=== PATIENT | female | born 1945 | race Caucasian/White ===

== ENCOUNTER → 2017-02-22 16:09 | Outpatient (CLI) | payer MEDICARE, OTHER ==
[2016-01-26 20:35] VITALS: BMI 25.8
[~2017-02-22 16:09] MED LIST: CALCIUM 600 +1 EAC3 PO; COLACE100 MG PO; FLUTICASONE PRO16 GM NASAL; HYZAAR 100-25 T1 TAB; HYZAAR 100-25 T1 TAB PO; K-DUR20 MEQ PO; MIRALAX17 GM PO; MULTIPLE VITAMI1 TA1 PO; NORVASC10 MG PO; PROTONIX40 MG PO
== END | disposition home or self-care (01) ==
LOC: D.CT 16:09
DX: R10.32 Left lower quadrant pain (principal)

== ENCOUNTER → 2017-07-20 07:13 | Outpatient (CLI) | payer MEDICARE, OTHER ==
[2016-01-26 20:35] VITALS: BMI 25.8
== END | disposition home or self-care (01) ==
LOC: D.RAD 07:13
DX: Z09 Encounter for follow-up examination after completed treatment for conditions other than malignant neoplasm (principal)

== ENCOUNTER 2017-09-01 08:00 | Outpatient (CLI) | payer MEDICARE, OTHER ==
[2016-01-26 20:35] VITALS: BMI 25.8
[2017-09-01] MEDS ORDERED: ELAVIL25 MG PO (08:16)
[2017-09-01] MEDS ORDERED: ZANTAC150 MG PO (08:16)
[2017-09-01] MEDS ORDERED: CARAFATE1 G PO (08:16)
[2017-09-01] MEDS ORDERED: VITAMIN B-12500 MC1 PO (08:17)
[2017-09-01] MEDS ORDERED: ALENDRONATE SOD70 MG PO (08:17)
[2017-09-01] MEDS ORDERED: MAG-OXIDE400 MG PO (08:18)
[2017-09-01 09:04] LABS: HEMATOCRIT 39.3 % (36.0-48.0); MCH 28.1 pg (26.0-34.0); MCHC 33.1 g/dL (31.0-37.0); MCV 85.1 fL (80.0-100.0); MEAN PLATELET VOLUME 9.7 fL (7.4-10.4); RBC 4.62 10x6/uL (4.00-5.40); RDW 14.4 % (11.5-14.5); WBC 4.9 10x3/uL (4.8-10.8)
--- NOTE | 2017-09-01 09:50 | NUR ---
0940-DR RECIO (IN SURGERY) NOTIFIED OF CRITICAL POTASSIUM LEVEL AND ABNORMAL EKG AT PREADMISSION APPOINTMENT. ORDERS RECD. [id number] NURSE-NOTIFIED TO CANCEL SURGERY, NOTIFY PATIENT, CALL IN POTASSIUM, AND ARRANGE APPOINTMENT WITH PRIMARY (YUE) AND SKULL CHOPPER.
== END 2017-09-01 23:59 | disposition home or self-care (01) ==
LOC: D.OPS 08:00 → D.PAN 09-03 11:30 → D.OPS 09-03 12:00 → D.PAN 09-03 12:00 → EDSTATUS 09-03 12:00
PROVIDERS: Anesthesiology
DX: D13.2 Benign neoplasm of duodenum (principal); Z01.810 Encounter for preprocedural cardiovascular examination; Z01.811 Encounter for preprocedural respiratory examination; Z01.812 Encounter for preprocedural laboratory examination; Z53.9 Procedure and treatment not carried out, unspecified reason

== ENCOUNTER 2017-10-20 12:20 | Day surgery (SDC) | payer MEDICARE, OTHER ==
[2017-10-18 10:32] LABS: HEMATOCRIT 37.3 % (36.0-48.0); HEMOGLOBIN 12.1 g/dL (12-16); MCH 27.6 pg (26.0-34.0); MCHC 32.4 g/dL (31.0-37.0); RBC 4.39 10x6/uL (4.00-5.40); RDW 14.4 % (11.5-14.5); WBC 4.9 10x3/uL (4.8-10.8)
[2017-10-18 10:42] LABS: ANION GAP 11.9 mmol/L (8-16); CALCIUM 8.8 mg/dL (8.5-10.1); CARBON DIOXIDE 30.1 mmol/L (21.0-32.0); CREATININE - SERUM 0.8 mg/dL (0.6-1.3)
[~2017-10-20] VITALS: Ht 157.5 cm; Wt 62.6 kg
[2017-10-20 12:10] VITALS: BP 129/82; Ht 157.5 cm; Wt 62.6 kg
[~2017-10-20 12:20] MED LIST changes: +ALENDRONATE SOD70 MG PO; +CARAFATE1 G PO; +ELAVIL25 MG PO; +MAG-OXIDE400 MG PO; +VITAMIN B-12500 MC1 PO; +ZANTAC150 MG PO
--- NOTE | 2017-10-20 20:53 | NUR ---
RECIEVED PT TO FLOOR FROM OUTPATIENT RECOVERY. ALERT AND ORIENTED AND ABLE TO VERBALIZE NEEDS. VSS. NO NEEDS VOICED AT THIS TIME. FAMILY IS AT THE BEDSIDE. SIDE RAILS X 2. BED IS LOW. CALL LIGHT IN REACH.
--- NOTE | 2017-11-18 13:26 | HP ---
PATIENT: SUNI SHAIKH MEDICAL RECORD: [id number] ACCOUNT: [id number] LOCATION:DAdalCARLOS : 41 ADMISSION DATE: 10/20/17 HISTORY AND PHYSICAL EXAMINATION This is a history and physical addendum CHIEF COMPLAINT: Polyp. HISTORY OF PRESENT ILLNESS: A history and physical examination is on the chart. The patient has a duodenal polyp at the second portion of the duodenum. This is biopsy proven duodenal adenoma. I am going to plan for an EGD with biopsies and ablation of any polypoid tissue with the argon plasma nurse practitioner adult. The risks, possible complications and alternatives to procedure were explained to the patient. She elects to proceed. TRANSINT:[id number] Voice Confirmation ID: [id number] DOCUMENT ID: [id number] SEAMUS RECIO MD at 1326 CC: CIPRIANO SILVA MD and PINO TURNER DO [id number] DICTATION DATE: 10/20/171954 CORPORATE CONCIERGE: 10/20/172108 [facility] 10/20/17 [id number] [place] [address]
--- NOTE | 2017-11-18 13:26 | OP ---
PATIENT NAME: SUNI SHAIKH MEDICAL RECORD: [id number] :41 LOCATION:D.OPS ADMISSION DATE: SURGEON: SEAMUS RECIO MD DATE OF OPERATION: 10/20/2017 PREOPERATIVE DIAGNOSIS: Duodenal adenoma at the second portion of duodenum. POSTOPERATIVE DIAGNOSIS: Duodenal adenoma at the second portion of duodenum. PROCEDURES: 1. Esophagogastroduodenoscopy with antral biopsies. 2. Duodenal polypectomy utilizing argon plasma diagnostic cardiac sonographer. SURGEON: Seamus Recio MD DECORATOR INSPECTOR: None. BLOOD LOSS: Minimal. ANESTHESIA: General. COMPLICATIONS: None. The risks, possible complications and alternatives to procedure were explained to the patient. She elects to proceed. OPERATIVE COURSE: The patient was conveyed to the operating room electively on 10/20/2017. General anesthesia was induced by the anesthesia staff. A bite block was inserted. A gastroscope was inserted into the mouth. It was advanced easily into the hypopharynx. The esophagus was easily intubated as were the stomach and duodenum. Upon withdrawal, retroflexed and angulus views were obtained. Antral biopsies were obtained. I then advanced again into the duodenum. Carefully scrutinized the duodenal bulb, second and third portions of the duodenum. It appeared that Dr. Presley has likely removed most of the polypoid tissue with her cold endoscopic biopsies. I did identify one area of what appear to be a polypoid tissue with narrow band imaging. This was biopsied. I then ablated the base of the tissue with the argon plasma diagnostic cardiac sonographer with the esophageal setting in the forced mode. The endoscope was then withdrawn under direct vision. I will see the patient in my office in 2-3 weeks. I will plan for her an upper endoscopy with the argon plasma diagnostic cardiac sonographer in 1 year. TRANSINT:[id number] Voice Confirmation ID: [id number] DOCUMENT ID: [id number] SEAMUS RECIO MD at 1326 CC: CIPRIANO PRESLEY MD and PINO TURNER DO [id number] DICTATION DATE: 10/20/172000 PAPER BAG PRESS OPERATOR: 10/20/173 [facility] 10/20/17 [place] [address]
== END 2017-10-20 22:15 | disposition home or self-care (01) ==
LOC: D.OPS 12:20 → D.PAN 14:00 → D.OPS 14:00 → D.MS 20:22 → D.OPS 22:15
PROVIDERS: Anesthesiology
DX: D13.2 Benign neoplasm of duodenum (principal); K29.50 Unspecified chronic gastritis without bleeding; Z01.812 Encounter for preprocedural laboratory examination

== ENCOUNTER 2019-02-22 16:31 | Observation (INO) | payer MEDICARE, OTHER ==
[~2019-02-22] VITALS: Ht 157.5 cm; Wt 70.1 kg
--- NOTE | ~2019-02-22 | HEMODYNAMI ---
PATIENT:SUNI SHAIKH MEDICAL RECORD: [id number] : 41 LOCATION:[facility] D.[address]122 [facility]# [id number] ADMISSION DATE: 02/22/19 Generatedon:02/23/201914:49 Patient name: SUNI SHAIKH Patient #: [id number] SSN: DO B: 1945 Date of study: 02/23/2019 Page: Of Hemodynamic Procedure Report Patient Data Patient Demographics Procedure consent was obtained First Name: SUNI Gender: Female Last Name: HAWA : 1945 Middle Initial: JANICE Age: 73 year(s) Patient #: [id number] Race: Unknown Additional ID: [id number] Contact details [address]: [address] [place] [address] State: [place] City: [place] Zip code: [address] Admission Admission Data Admission Date: 02/22/2019 Admission Time: 18:22 Admit Source: Other Room #: D.2122 Weight (lbs.): 136.69 Weight (kg.): 62 Lab Results Lab Result Date: 02/23/2019 Lab Result Time: 0:00 Biochemistry Name Units Result Min Max BUN mg/dl 9 --(*---)-- 7 18 Creatinine mg/dl 0.8 --(-*--)-- 0.6 1.3 CBC Name Units Result Min Max Hemoglobin g/dl 11.9 *-(----)-- 13.5 17.5 Procedure Procedure Types Cath Procedure Diagnostic Procedure LHC LH w/Coronaries FFR/IVUS Intra-Coronary IVUS Initial PCI Procedure Coronary Stent Coronary Stent Initial Peripheral Cath Diagnostic Procedure Assistant Program Director Peripheral Procedures Four Vessel Arteriogram Procedure Description Procedure Date Procedure Date: 02/23/2019 Procedure Start Time: 14:14 Procedure End Time: 14:47 Procedure Staff Name Function Tomer Mi MD Performing Physician Juan Fox RT Monitor Trung Rowe RT Scrub Kim Spaulding RN Nurse Robert Reese RT Moisture Meter Operator Procedure Data Cath Procedure Fluoroscopy Diagnostic fluoroscopy Total fluoroscopy Time: time: 5.97 min 5.97 min Diagnostic fluoroscopy Total fluoroscopy dose: 244 dose: 244 mGy mGy Contrast Material Contrast Material Type Amount (ml) Isovue 300 128 Entry Location Entry Primary Successful Side Size Upsize Upsize Entry Closure Succes sful Closure Location (Fr) 1 (Fr) 2 (Fr) Remarks Device Remarks Femoral Right 5 Fr 6 Fr Exoseal artery Short Estimated blood loss: 10 ml Diagnostic catheters Device Type Used For End Catheter Placement MULTIPACK Pigtail 5 Fr Procedure catheter MULTIPACK JL 4.0 5Fr Procedure catheter MULTIPACK 3DRC 5Fr Procedure catheter Procedure Complications No complications Procedure Medications Medication Administration Route Dosage Oxygen etCO2 Nasal cannula 2 l/min Lidocaine 2% added to field 20 Heparin Flush Bag added to field 2 bags (1000units/500ml NS) 0.9% NaCl I.V. 100 ml/hr Versed I.V. 1 mg Fentanyl I.V. 50 mcg Lopressor I.V. 5 mg Versed I.V. 1 mg Fentanyl I.V. 50 mcg Versed I.V. 1 mg Heparin Bolus I.V. 4000 units Hemodynamics Rest HGB: 11.9 (g/dl) Heart Rate: 94 (bpm) Pressure Samples Time Site Value (mmHg) Purpose Heart Use Rate(bpm) 14:19 AO 102/65(80) Snapshot 62 Snapshots Pre Cath Intra NCS Post Cath Vital Signs Time Heart Resp SPO2 etCO2 NIBP (mmHg) Rhythm Pain Sedation Rate (ipm) (%) (mmHg) Status Level (bpm) 13:58:12 90 13 97 0 172/104(136) NSR 0 (11) 10(A) , No pain 14:02:32 101 23 96 24.7 157/98(127) NSR 0 (11) 10(A) , No pain 14:06:50 88 20 95 30 146/90(113) NSR 0 (11) 10(A) , No pain 14:11:06 85 14 97 32.2 129/83(103) NSR 0 (11) 10(A) , No pain 14:15:18 82 14 98 1.5 116/74(87) NSR 0 (11) 9(A) , No pain 14:19:30 67 14 98 41.3 118/65(82) NSR 0 (11) 9(A) , No pain 14:23:38 68 13 99 31.5 128/81(112) NSR 0 (11) 9(A) , No pain 14:27:52 57 12 99 15 116/72(93) NSR 0 (11) 9(A) , No pain 14:32:02 60 12 99 12 102/68(89) NSR 0 (11) 10(A) , No pain 14:36:05 62 13 100 27.7 114/75(94) NSR 0 (11) 10(A) , No pain 14:40:15 64 16 99 32.2 118/69(91) NSR 0 (11) 10(A) , No pain 14:44:25 60 14 99 27.7 113/73(102) NSR 0 (11) 10(A) , No pain Medications Time Medication Route Dose Verified Delivered Reason Notes Effectiveness by by 14:07:34 Oxygen etCO2 2 Tomer Buffie used for Nasal l/min Hiwot Spaulding RN procedure cannula 14:07:42 Lidocaine 2% added 20ml Tomer Tomer for local to vial Hiwot Mi MD anesthetic field 14:07:49 Heparin Flush added 2 Tomer Tomer used for Bag to bags Hiwot Mi MD procedure (1000units/500ml field NS) 14:08:02 0.9% NaCl I.V. 100 Tomer Buffie used for ml/hr Hiwot Spaulding RN procedure 14:11:05 Fentanyl I.V. 50 Tomer Buffie for sedation mcg Hiwot Spaulding RN 14:11:58 Versed I.V. 1 mg Tomer Buffie for sedation Hiwot Spaulding RN 14:13:15 Lopressor I.V. 5 mg Tomer Buffie for arrhythmia Hiwot Spaulding RN 14:16:27 Versed I.V. 1 mg Tomer Buffie for sedation Hiwot Spaulding RN 14:16:32 Fentanyl I.V. 50 Tomer Buffie for sedation mcg Hiwot Spaulding RN 14:24:12 Versed I.V. 1 mg Tomer Buffie for sedation Hiwot Spaulding RN 14:28:01 Heparin Bolus I.V. 4000 Tomer Buffie for verif ied units Hiwot Spaulding RN anticoagulation with dr mi Procedure Log Time Note 13:38:18 Informed consent obtained and on chart 13:38:22 Admit Source: Other 13:38:39 Diagnostic Cath status Elective 13:38:41 Robert Reese RT(R) (CV) sent for patient. Start room use. 13:49:59 Time tracking: Regular hours (M-F 7:00 - 5:00) 13:50:02 Plan of Care:Hemodynamics will remain stable., Cardiac rhythm will remain stable., Comfort level will be maintained., Respiratory function will remain adequate., Patient/ family verbilizes understanding of procedure., Procedure tolerated without complication., Recovers from procedure without complications.. 13:50:17 Patient received from PCU to CCL 3 Alert and oriented. Tansferred to table in Supine position. 13:50:19 Warm blankets applied, and lai hugger turned on for patient comfort. 13:50:19 Correct patient and procedure confirmed by team. 13:50:20 ECG and BP/O2 sat monitors applied to patient. 13:56:17 Vital chart was started 13:56:18 Baseline sample Acquired. 13:56:22 Rhythm: bigeminy 13:56:27 Full Disclosure recording started 14:00:25 H&P Date Dictated: 02/22/2019 Within 30 days and on chart., H&P Addendum completed by physician on day of procedure. (MUST COMPLETE FOR ALL OUTPATIENTS). 14:00:25 Pre-procedure instructions explained to patient. 14:00:26 Pre-op teaching completed and patient verbalized understanding. 14:00:27 Family in patients room. 14:00:29 Patient NPO since Midnight. 14:00:32 Is the patient allergic to Iodine/contrast media? No. 14:01:35 Is patient on blood thinner?Yes 14:01:41 Patient diabetic? No. 14:01:46 Previous problem with sedation/anesthesia? No ? 14:01:47 Snore? Yes 14:01:49 Sleep apnea? No 14:01:57 Deviated septum? No 14:01:57 Opens mouth fully? Yes 14:01:58 Sticks out tongue? Yes 14:02:01 Airway obstruction? No ? 14:02:03 Dentures? No ? 14:02:09 Pre procedure: right dorsailis pedis pulse 1+ Palpable, but thready & weak; easily obliterated 14:02:10 Patient pain scale 0/10 ?. 14:02:14 IV patent on arrival in left forearm with 0.9% NaCl at O. 14:02:16 Lab results completed and on chart. 14:02:20 Right groin area was prepped with chlora-prep and draped in sterile fashion 14:02:21 Alarms reviewed by R. N. 14:02:21 Sharps counted by scrub and verified by R.N. 14:03:02 Use device set Femoral Dx 14:03:07 Tegaderm 4 x 4 (1626W) opened to sterile field. 14:03:08 ACIST Manifold (71540) opened to sterile field. 14:03:09 ACIST Hand Control (65997) opened to sterile field. 14:03:10 ACIST Syringe (87681) opened to sterile field. 14:03:11 Bag Decanter (2002S) opened to sterile field. 14:03:11 Medline Cath Pack ([id number]) opened to sterile field. 14:03:12 DIAGNOSTIC WIRE .035 260cm J wire (159638) opened to sterile field. 14:03:13 DIAGNOSTIC Multipack 5Fr catheter set (QJ9073) opened to sterile field. 14:03:14 SHEATH 5FR Roulette (ZLC700) opened to sterile field. 14:07:34 Oxygen 2 l/min etCO2 Nasal cannula was administered by Kim Spaulding RN; used for procedure; 14:07:42 Lidocaine 2% 20ml vial added to field was administered by Tomer Mi MD; for local anesthetic; 14:07:49 Heparin Flush Bag (1000units/500ml NS) 2 bags added to field was administered by Tomer Mi MD; used for procedure; 14:08:02 0.9% NaCl 100 ml/hr I.V. was administered by Kim Spaulding RN; used for procedure; 14::19 --------ALL STOP TIME OUT------ 14::19 Final Timeout: patient, procedure, and site verified with staff and physician. All members of the team are in agreement. 14:10:21 Right groin site verified by team. 14:10:24 Maximum allowable Isovue 300 dose 300ml. Physician notified. (300ml for normal creatinines. For patients with creatinine of 1.7 or higher multiply weight(kg) x 5 divided by creatinine.) 14:10:29 Fire Safety Assessment: A--An alcohol-based skin anteseptic being used preoperatively., C--Open oxygen or nitrous oxide is being used., D--An ESU, laser, or fiber-optic light is being used. 14:10:32 Physical assessment completed. ASA score P 2 - A patient with mild systemic disease as per Tomer Mi MD. 14:10:34 Sedation plan: IV Moderate Sedation Medication:Versed, Fentanyl 14:11:05 Fentanyl 50 mcg I.V. was administered by Kim Spaulding RN; for sedation; 14:11:58 Versed 1 mg I.V. was administered by Kim Spaulding RN; for sedation; 14:13:15 Lopressor 5 mg I.V. was administered by Kim Spaulding RN; for arrhythmia; 14:13:22 Patient Weight : 136.69 lbs 14:13:57 Lab Result : Hemoglobin 11.9 g/dl 14:13:57 Lab Result : Creatinine 0.8 mg/dl 14:13:57 Lab Result : BUN 9 mg/dl 14:14:07 Procedure started. 14:14:10 Local anesthetic to right femoral artery with Lidocaine 2% by Tomer Mi MD.INITIAL ACCESS ONLY 14:16:19 A 5 Fr sheath was inserted into the Right Femoral artery 14:16:25 A MULTIPACK Pigtail 5 Fr catheter was advanced over the wire and used for Procedure. 14:16:27 Versed 1 mg I.V. was administered by Kim Spaulding RN; for sedation; 14:16:32 Fentanyl 50 mcg I.V. was administered by Kim Spaulding RN; for sedation; 14:17:01 LV angiography performed. 14:17:02 LV gram done using DODD 14:17:07 EF : 40 % 14:17:10 Injector settings: Ml/sec: 10, Volume: 20, 14:17:11 Catheter removed. 14:17:19 A MULTIPACK JL 4.0 5Fr catheter was advanced over the wire and used for Procedure. 14:18:47 LCA angiography performed. 14:19:29 Catheter removed. 14:20:11 A MULTIPACK 3DRC 5Fr catheter was advanced over the wire and used for Procedure. 14:20:27 RCA angiography performed. 14:20:51 Use device set [facility] PCI 14:20:52 SHEATH 6FR Roulette (HAU182) opened to sterile field. 14:21:08 GUIDE 6FR XBLAD 4.0 catheter ([id number]) opened to sterile field. 14:21:11 CHOICE PT Extra Support 182cm wire ([id number]) opened to sterile field. 14:21:14 INFLATOR Merit BasixCompak (EA0340) opened to sterile field. 14:21:54 Right subclavian angiography performed 14:21:56 Left carotid angiography performed. 14:21:59 Left subclavian angiography performed 14:22:28 [place] IVUS Catheter (19383R) opened to sterile field. 14:23:27 Catheter removed. 14:23:38 Sheath upsized to a 6 Fr Short. 14:23:44 6 Fr XBLAD 4 guide catheter was inserted over the wire 14:24:12 Versed 1 mg I.V. was administered by Kim Spaulding RN; for sedation; 14:26:22 choice wire advanced. 14:26:28 Wire advanced across lesion. 14:26:42 FFR/IVUS 14:26:42 IVUS catheter advanced over wire. 14:26:52 LAD 14:28:01 Heparin Bolus 4000 units I.V. was administered by Kim Spaulding RN; for anticoagulation; verified with dr mi 14:29:13 IVUS pass to LAD lesion performed. 14:29:14 IVUS catheter removed over wire. 14:29:27 69% 14:31:39 Place stent Inflation Number: 1 A INTEGRITY RX 3.0 x 15 stent ([id number]) was prepped and advanced across the Prox LAD. The stent was deployed at 17 ROSA for 0:10 (min:sec). 14:31:42 Stent catheter was removed intact over wire. 14:31:43 Wire removed. 14:31:43 Guide catheter removed. 14:31:45 EXOSEAL 6Fr (EX600) opened to sterile field. 14:32:19 Sheath removed intact; hemostasis achieved with Exoseal to the Right Femoral artery. 14:32:21 Procedure ended.(Physican Out) 14:44:49 Fluoroscopy time 05.97 minutes. 14:45:06 Fluoroscopy dose: 244 mGy 14:45:06 Flurop Dose total: 244 14:45:09 Contrast amount:Isovue 300 128ml. 14:45:11 Sharps counted by scrub and verified by R.N. 14:45:12 Insertion/operative site no bleeding no hematoma. 14:45:16 Post-op/insertion site Right Femoral artery dressed using a 4 x 4 and Tegaderm. 14:45:17 Post Procedure Pulses reassessed and unchanged 14:45:20 Post-procedure physical assessment completed. ASA score P 2 - A patient with mild systemic disease as per Tomer Mi MD. 14:45:23 Post procedure rhythm: unchanged. 14:45:26 Estimated blood loss: 10 ml 14:45:28 Post procedure instruction explained to patient.Patient verbalizes understanding. 14:45:28 Patient needs reinforcement of post procedure teaching. 14:45:46 Procedure type changed to Cath procedure, Diagnostic procedure, LHC, LHC w/Coronaries, FFR/IVUS, Intra-Coronary IVUS Initial, PCI procedure, Coronary Stent, Coronary Stent Initial, Peripheral Cath Diagnostic Procedure, Assistant Program Director Peripheral Procedures, Four Vessel Arteriogram 14:46:10 Procedure and supply charges have been captured, reviewed, submitted and are correct. 14:46:13 Procedure Complication : No complications 14:46:16 Vital chart was stopped 14:46:16 See physician's report for complete and final results. 14:47:28 Report given to PCU. 14:47:32 Patient transfered to PCU with Bed. 14:47:34 Procedure ended. 14:47:34 Full Disclosure recording stopped 14:49:09 End room use (Document Last) Intervention Summary Intervention Notes Time ActionType Lesion and Equipment Action# Pressure Duration Attributes Used 14:31:39 Place stent Prox LAD INTEGRITY RX 1 17 00:10 3.0 x 15 stent ([id number]) Device Usage Item Name Manufacture Quantity Catalog Number Hospital Part Current Mini mal Lot# / Charge Number Stock Stock Serial# Code Tegaderm 4 x 3M 1 1626W [id number] 961526 743242 5 4 (1626W) ACIST Acist 1 66477 975395 099650 025211 5 Manifold Medical (33918) Systems Inc ACIST Hand Acist 1 26207 324859 527166 036766 5 Control Medical (09115) Systems Inc ACIST Acist 1 91759 895065 281178 389767 20 Syringe Medical (96937) Systems Inc Bag Decanter Microtek 1 2001S 856476 12104 332732 5 () Medical Inc. Medline Cath Medline 1 [id number] 972008 37782 929520 5 Pack ([id number]) DIAGNOSTIC St Domo 1 131498 390209 397397 515151 30 WIRE .035 260cm J wire (127110) DIAGNOSTIC Cardinal 1 EQ1527 874107 92336 937836 30 Multipack Health 5Fr catheter set (UH3951) SHEATH 5FR Terumo 1 OSR508 683425 267071 802583 5 Roulette (NYY836) MULTIPACK Cardinal 1 030304 5 Pigtail 5 Fr Health catheter MULTIPACK JL Cardinal 1 522706 5 4.0 5Fr Health catheter MULTIPACK Cardinal 1 118765 5 3DRC 5Fr Health catheter SHEATH 6FR Terumo 1 YDD972 219473 648787 016151 40 Roulette (DNG504) GUIDE 6FR Cardinal 1 [id number] 279174 776967 230076 3 XBLAD 4.0 Health catheter ([id number]) CHOICE PT [place] 1 [id number] 647435 845333 098935 5 Extra Scientific Support 182cm wire ([id number]) INFLATOR Merit 1 DO7201 425279 709103 203389 15 [facility] Medical BasixCompak (NV3088) [place]arm Glenarm 1 26391O 765066 165510 996785 8 [place] IVUS Catheter (78871F) INTEGRITY RX Medtronic 1 [id number] 044386 692848 030799 5 [id number] 3.0 x 15 stent ([id number]) EXOSEAL 6Fr Cardinal 1 EX600 182559 272469 158968 10 (EX600) Health Signature Audit Aragon Stage Time Signature Unsigned Intra-Procedure 02/23/2019 Juan Fox 2:49:39 PM RT(R) Signatures Monitor : Juan Fox RT Signature : Date : Time : [facility] [address] [place] [address]
--- NOTE | ~2019-02-22 | CN ---
PATIENT NAME:SUNI PENNINGTON MEDICAL RECORD: [id number] : 41 LOCATION:D. D.2122 ADMIT DATE: 02/22/19 ACCOUNT: [id number] CONSULTING PHYSICIAN: KAREN MIGUEL MD REFERRING PHYSICIAN: PINO TURNER DO DATE OF CONSULTATION: 02/22/2019 DIAGNOSES: 1. Angina. 2. Abnormal ECG. 3. Premature ventricular contractions. 4. Hypertension. 5. Hyperlipidemia. 6. Family history of coronary artery disease. 7. Gastroesophageal reflux disease. HISTORY OF PRESENT ILLNESS: Mrs. Pennington for the past 2 weeks has been having episodes of palpitations and chest pain. Her EKG is significantly abnormal. She has frequent PVCs, nonspecific ST-T abnormalities. She continues to have the episodes of chest discomfort. She is on amlodipine for blood pressure. PHYSICAL EXAMINATION: GENERAL APPEARANCE: Well-nourished, well-developed, appears stated age. Level of distress, comfortable. PSYCHIATRIC: Mental status, alert, normal affect. Orientation, oriented to time, place and person. EYES: Lids and conjunctiva, noninjected. No discharge, no pallor. ENT: Lips, teeth, gums, normal dentition. Oropharynx, no cyanosis, no pallor. NECK: Carotid arteries, bilateral normal upstroke, no bruits, no thrills. JUGULAR VEINS: No jugular venous pressure or distention. CERVICAL LYMPH NODES: Nontender, nonenlarged. THYROID: Not enlarged. Nontender. No nodules. LUNGS: Respiratory effort, unlabored. CHEST: Normal curvature. No thoracic deformity. No chest wall tenderness. Percussion, resonant. Auscultation, clear. No wheezes, no rales, no rhonchi. CARDIOVASCULAR: Precordial exam, nondisplaced. No heaves or pericardial thrills. Rate and rhythm, regular. Heart sounds, normal S1, normal S2. No S3, no gallop, no rub. Systolic murmur, not heard. Diastolic murmur, not heard. EXTREMITIES: No cyanosis, no edema. Peripheral pulses, full and equal in all extremities, except as noted. No bruits appreciated. ABDOMEN: Soft, nondistended. Normal aorta. No bruit. Nontender. No masses. Liver, nontender, no hepatomegaly. Spleen, nontender, no splenomegaly. MUSCULOSKELETAL: No joint tenderness. No joint swelling. No erythema. NEUROLOGICAL: Normal gait, normal strength, normal tone. SKIN: Warm and dry. OVERALL IMPRESSION: Chest discomfort compatible with angina with frequent premature ventricular contractions. We will proceed with coronary angiography. Further care depends upon findings of the angiography, and findings of the angiography depends upon treatment of the premature ventricular contractions. TRANSINT:[id number] Voice Confirmation ID: [id number] DOCUMENT ID: [id number] CONSULT REPORT [id number] SUNI PENNINGTON JEFFREY MD CC: [id number] DICTATION DATE: 02/23/19826 PATIENT SERVICE ASSOCIATE: 02/23/19846 ADM IN [facility] [address] [id number]
[2019-02-22] MEDS ORDERED: OMEPRAZOLE20 M1 PO (16:44)
[2019-02-22] MEDS ORDERED: ASPIRIN81 MG PO (16:45)
[2019-02-22 17:01] LABS: BASOPHILS 0.4 % (0-2); EOSINOPHILS 2.5 % (0-7); HEMATOCRIT 36.5 % (36.0-48.0); HEMOGLOBIN 11.9 g/dL (12-16); IMMATURE GRANULOCYTES 0.2 % (0-5); LYMPHOCYTES 28.2 % (15-50); MCH 27.6 pg (26.0-34.0); MCHC 32.6 g/dL (31.0-37.0); MCV 84.7 fL (80.0-100.0); MEAN PLATELET VOLUME 9.3 fL (7.4-10.4); MONOCYTES 12.5 % (2-11); NEUTROPHILS 56.2 % (40-80); PLATELET COUNT 199 10x3/uL (130-400); RBC 4.31 10x6/uL (4.00-5.40); RDW 15.8 % (11.5-14.5); WBC 5.3 10x3/uL (4.8-10.8)
[2019-02-22 17:11] LABS: APTT 24.8 SECONDS (22.8-39.4); INR 0.98 (0.85-1.17); PROTIME 12.5 SECONDS (11.6-15.0)
[2019-02-22 17:18] LABS: ALBUMIN 3.2 g/dL (3.4-5.0); ALKALINE PHOSPHATASE 48 U/L (46-116); ALT (SGPT) 20 U/L (10-68); BILIRUBIN - TOTAL 0.26 mg/dL (0.2-1.3); CALC OSMOLALITY 277 mosm/kg (275-300); CALCIUM 8.3 mg/dL (8.5-10.1); CARBON DIOXIDE 25.8 mmol/L (21.0-32.0); CHLORIDE - SERUM 102 mmol/L (98-107); CREATININE - SERUM 0.8 mg/dL (0.6-1.3); GLUCOSE 152 mg/dL (74-106); POTASSIUM - SERUM 3.9 mmol/L (3.5-5.1); PROTEIN - SERUM 7.4 g/dL (6.4-8.2); SODIUM 138 mmol/L (136-145); UREA NITROGEN 9 mg/dL (7-18); eGFR NON AFRICAN AMERICAN 74 mL/min (90-120)
[2019-02-22 17:43] LABS: CKMB 0.5 U/L (0.0-3.6); CREATINE KINASE 74 UL (21-215); TROPONIN-I < 0.017 ng/mL (0.000-0.060)
[2019-02-22 18:54] LABS: MAGNESIUM - SERUM 2.1 mg/dL (1.8-2.4); THYROID STIMULATING HORMONE 3.67 uIU/mL (0.36-3.74)
[2019-02-22 20:00] VITALS: BP 141/91
--- NOTE | 2019-02-22 20:00 | NUR ---
PT ARRIVED TO ROOM 2121, FAMILY AT BEDSIDE. PT IS AAO, UP AD SHARAN LEFT AC 18G NOTED. PATENT DRSG CDI. PT S1S2 IRREG. LUNGS CLEAR. PT DENIES ANY CHEST PAIN. STATES SOME CHEST DISCOMFORT, DECLINES MEDICATION BUT VERBALIZED UNDERSTANDING TO CALL IF NEED PAIN RELEIF MEDICATION. PT QUICK START PHARMACY MEDREC AND HISTORY COMPLETE. PT INSIST ON TAKING HOME MEDICATIONS. PT IS BIGEMENY AND TRIGEMENY PVC ON MONITOR READING. DENIES ANY NEEDS. NAME AND DATE PLACED ON BOARD. PT WILL CALL FOR ASSIST WILL CPOC
--- NOTE | 2019-02-22 20:22 | NUR ---
LEFTY ALVARADO [phone] ANOTHER CONTACT FOR EMERGENCYS
--- NOTE | 2019-02-22 21:08 | NUR ---
PT COMPLAINS OF BEING HUNGRY. IV IS NOW OUT OF LEFT AC WITH CATH INTACT. WILL START A NEW ACCESS SOON ABLE. PT HAS NO S/S OF DISTRESS. SANDWICH AND SPRITE GIVEN. PT HAS FAMILY AT BEDSIDE. WILL CPOC
[2019-02-22 21:31] LABS: CKMB 0.6 U/L (0.0-3.6); CREATINE KINASE 69 UL (21-215)
[2019-02-22 21:35] LABS: TROPONIN-I < 0.017 ng/mL (0.000-0.060)
[2019-02-23] VITALS: BP 131/75
[2019-02-23 01:52] VITALS: BP 141/91; BMI 24.9
[2019-02-23 04:00] VITALS: BP 124/74
[2019-02-23 05:29] LABS: CKMB 0.6 U/L (0.0-3.6); CREATINE KINASE 58 UL (21-215); TROPONIN-I < 0.017 ng/mL (0.000-0.060)
[2019-02-23 08:36] VITALS: BP 126/81
--- NOTE | 2019-02-23 08:59 | NUR ---
RESUMING PT CARE, PT LAYING IN BED ALERT AND ORIENTED X3. FAMILY AT BEDSIDE, CONSENTS SIGNED FOR HEART CATH THIS AFTERNOON. PT INSTRUCTED TO BE NPO AFTER BREAKFAST. IV STARTED TO LEFT WRIST. WILL CONTINUE TO MONITOR AND FOLLOW PLAN OF CARE.
--- NOTE | 2019-02-23 09:10 | HP ---
PATIENT: SUNI SHAIKH MEDICAL RECORD: [id number] ACCOUNT: [id number] LOCATION:[address] : 41 ADMISSION DATE: 02/22/19 PCP: PINO TURNER DO HISTORY AND PHYSICAL EXAMINATION HISTORY OF PRESENT ILLNESS: Ms. Shaikh is a 73-year-old white female has not been feeling well for the last couple of days, has been experiencing palpitations, has had some intermittent chest pain, which radiates up into her jaw. She has had some nausea with it, maybe a little shortness of breath. No diaphoresis. No association with exercise. She presents to the Emergency Room where she was found to be in [facility]. Her initial cardiac enzymes are negative. Her chest x-ray looks okay. She is admitted for cardiology evaluation of her arrhythmia and her chest pain. PAST MEDICAL HISTORY: Significant for hypertension, hypothyroidism, osteoporosis, chronic hypokalemia, and vitamin D deficiency. PAST SURGICAL HISTORY: Include an appendectomy, breast biopsy, cataract surgery, cholecystectomy, and hemorrhoidectomy. ALLERGIES: None known. HOME MEDICATIONS: Include potassium 20 mEq 2 t.i.d., pantoprazole 40 mg daily, Flonase p.r.n., amitriptyline 25 two at bedtime, amlodipine 10 one a day, MiraLax p.r.n., Zantac 150 twice a day, D3, Carafate, ICAPS and an aspirin 81 mg daily. FAMILY HISTORY: Significant for heart disease, breast cancer, a brother with colon cancer, brothers with lung cancer and type 2 diabetes with mom. SOCIAL HISTORY: The patient has had a history of heavy alcohol in the past, but has not drank in several years. She does not smoke. She is . She is retired. REVIEW OF SYSTEMS: Just overall not feeling well. She has had chest pain as described above with some nausea and a little shortness of breath. No diaphoresis, did not have a bowel movement today, but normally has 1 daily. No dysuria. No change in urinary symptom or habits. PHYSICAL EXAMINATION: GENERAL: No distress at this time. HEENT: Sclerae nonicteric. HEART: Regular with occasional extrasystoles. LUNGS: Clear. ABDOMEN: Soft. No edema. NEUROLOGIC: Without any gross focal deficits. IMPRESSION: 1. Chest pain. 2. Ventricular premature ventricular contractions with bigeminy. 3. Hypertension. 4. Chronic hypokalemia, which is currently controlled. 5. Hypothyroidism. 6. Hyperlipidemia. 7. Osteoporosis. HISTORY AND PHYSICAL [id number] SUNI SHAIKH PLAN: Admit, cycle enzymes, check echo, cardiac referral. See orders for rest of the plan. TRANSINT:[id number] Voice Confirmation ID: [id number] DOCUMENT ID: [id number] PINO TURNER DO at 0910 CC: [id number] DICTATION DATE: 02/22/192006 RESISTANCE BRAZER: 02/22/19 2101 ADM IN [facility] [address] [id number]
--- NOTE | 2019-02-23 09:41 | NUR ---
PER AROLDO HANDLEY, PT MAY TAKE HER OWN MEDICATIONS WHILE SHE IS IN OBSERVATION STATUS. ORDER NOTED.
[2019-02-23 09:50] LABS: CKMB 0.5 U/L (0.0-3.6); CREATINE KINASE 62 UL (21-215)
--- NOTE | 2019-02-23 09:53 | NUR ---
I have reviewed this patient and I concur with the Shift Assessment completed by the Licensed Practical Nurse today this shift.
[2019-02-23 09:56] LABS: TROPONIN-I < 0.017 ng/mL (0.000-0.060)
[2019-02-23 10:01] LABS: ANION GAP 13.9 mmol/L (8-16); CARBON DIOXIDE 25.2 mmol/L (21.0-32.0); CREATININE - SERUM 0.8 mg/dL (0.6-1.3); POTASSIUM - SERUM 4.1 mmol/L (3.5-5.1)
[2019-02-23 12:07] VITALS: BP 119/71
[2019-02-23 12:54] VITALS: Ht 157.5 cm; Wt 70.1 kg
--- NOTE | 2019-02-23 17:49 | NUR ---
PER AROLDO HANDLEY APRN ORDER HEAD CT WITHOUT CONTRAST, DX IS HEADACHES AND DIZZINESS. CT NOTIFIED OF PT HAVING TO LAY FLAT AFTER HEART CATH UNTIL 18[address]. [address] THIS MAY BE DONE IN THE MORNING IF NOT TONIGHT.
--- NOTE | 2019-02-23 19:20 | NUR ---
PT IS AAO, SLIGHTLY [place] IN LEFT EAR. PT WENT DOWN FOR CT SCAN VIA WHEELCHAIR. PT BACK TO ROOM. FAMILY AT BEDSIDE. PT HAS NO S/S OF DISTRESS. NAME AND DATE PLACED ON BOARD. PT WILL CALL FOR ASSIST WHEN NEEDED. WILL CPOC
--- NOTE | 2019-02-23 20:00 | NUR ---
RIGHT GROIN CDI. NO HEMATOMA. PULSES +2
[2019-02-23 21:18] VITALS: BP 121/67
--- NOTE | 2019-02-23 22:35 | NUR ---
PT TOOK MEDICATIONS FROM HOME, TOOK THE MEDICATIONS ORDERED ON EMAR. PT HAS NO S/S OF DISTRESS. FAMILY AT BEDSIDE. RIGHT GROIN DRSG CDI NO HEMATOMA. PT PULSES +2. PT STATES DO NOT COME IN FOR MIDNIGHT VITALS. INFORMED TECH. PT WILL CALL FOR ASSIST WHEN NEEDED. WILL CPOC
[2019-02-24 04:00] VITALS: BP 131/72
[2019-02-24 05:46] LABS: BASOPHILS 0.6 % (0-2); EOSINOPHILS 4.1 % (0-7); HEMATOCRIT 34.7 % (36.0-48.0); HEMOGLOBIN 11.2 g/dL (12-16); IMMATURE GRANULOCYTES 0.3 % (0-5); LYMPHOCYTES 29.8 % (15-50); MCH 27.2 pg (26.0-34.0); MCHC 32.3 g/dL (31.0-37.0); MCV 84.2 fL (80.0-100.0); MEAN PLATELET VOLUME 9.5 fL (7.4-10.4); MONOCYTES 14.4 % (2-11); NEUTROPHILS 50.8 % (40-80); PLATELET COUNT 197 10x3/uL (130-400); RBC 4.12 10x6/uL (4.00-5.40); RDW 15.9 % (11.5-14.5)
[2019-02-24 05:55] LABS: WBC 3.6 10x3/uL (4.8-10.8)
[2019-02-24 06:03] LABS: ALBUMIN 2.8 g/dL (3.4-5.0); ANION GAP 13.6 mmol/L (8-16); BILIRUBIN - TOTAL 0.34 mg/dL (0.2-1.3); CALCIUM 7.9 mg/dL (8.5-10.1); CARBON DIOXIDE 22.3 mmol/L (21.0-32.0); CREATININE - SERUM 0.8 mg/dL (0.6-1.3); POTASSIUM - SERUM 3.9 mmol/L (3.5-5.1); PROTEIN - SERUM 6.4 g/dL (6.4-8.2)
--- NOTE | 2019-02-24 06:32 | NUR ---
MORNING PROTONIX TAKEN. PT TOOK OWN HOME MEDICATION. ALLOWED PER ORDER. PT DENIES ANY NEEDS. WILL CPOC
[2019-02-24 09:24] VITALS: BP 124/71
[2019-02-24] MEDS ORDERED: PLAVIX75 MG PO (10:16)
[2019-02-24] MEDS ORDERED: TOPROL XL25 MG PO (10:17)
[2019-02-24] MEDS ORDERED: PRAVACHOL40 MG PO (10:59)
--- NOTE | 2019-02-24 11:54 | NUR ---
D/C INSTRUCTIONS GIVEN TO PT, IV REMOVED FROM LEFT WRIST AND PT TAKEN TO CAR VIA WHEELCHAIR.
--- NOTE | 2019-02-27 09:30 | MORECARE ---
CASE MANAGEMENT DISCHARGE SUMMARY PATIENT: SUNI SHAIKH ANN UNIT: [id number] ADM DATE: 02/22/19 AGE: 73 : 43 SEX: F ROOM/BED: D.3302 AUTHOR: JENS MONAE PHYSICIAN: REFERRING PHYSICIAN: PINO TURNER DO DATE OF SERVICE: 02/27/19 Discharge Plan Patient Name: SUNI SHAIKH Facility: [facility]:[place] : 1945 Planned Disposition: Home Anticipated Discharge Date: 02/24/19 Discharge Date: 02/24/2019 Expected LOS: 2 Initial Reviewer: [email or web address] Initial Review Date: 02/27/2019 Generated: 02/27/19 10:30 am Patient Name: SUNI SHAIKH Page [id number] at 0930 All edits/amendments must be made on the electronic document DICTATION DATE: 02/27/19929 PELOTA MAKER: TIM 02/27/19929 RPT#: [id number] DC DATE:02/24/19 STATUS: DIS IN [facility] [address] [place] [address] END OF REPORT
== END 2019-02-24 11:55 | disposition home or self-care (01) ==
LOC: D.ER 16:31 → D.EDHOLD 18:22 → D.M2 18:56 → OBSVTIME 18:56 → D.M2 02-24 11:55
PROVIDERS: Emergency Medicine; Family Medicine; ADMIT Family Medicine; ATTEND Family Medicine
DX: I25.10 Atherosclerotic heart disease of native coronary artery without angina pectoris (principal); R00.8 Other abnormalities of heart beat; I49.3 Ventricular premature depolarization; E03.9 Hypothyroidism, unspecified; E87.6 Hypokalemia; I10 Essential (primary) hypertension; E78.5 Hyperlipidemia, unspecified; M81.0 Age-related osteoporosis without current pathological fracture; R94.31 Abnormal electrocardiogram [ECG] [EKG]; K21.9 Gastro-esophageal reflux disease without esophagitis

== ENCOUNTER 2019-03-04 10:05 | Observation (INO) | payer MEDICARE, OTHER ==
[~2019-03-04] VITALS: Ht 157.5 cm; Wt 58.6 kg
--- NOTE | ~2019-03-04 | HEMODYNAMI ---
PATIENT:SUNI SHAIKH MEDICAL RECORD: [id number] : 41 [id number] ADMISSION DATE: 03/04/19 Generatedon:03/05/201910:52 Patient name: SUNI SHAIKH Patient #: [id number] SSN: DO B: 1945 Date of study: 03/05/2019 Page: Of Hemodynamic Procedure Report Patient Data Patient Demographics Procedure consent was obtained First Name: SUNI Gender: Female Last Name: HAWA : 1945 [facility] Initial: JANICE Age: 73 year(s) Patient #: [id number] Race: Unknown Additional ID: [id number] Contact details [address]: [address] [place] [address] State: [place] City: [place] Zip code: [address] Admission Admission Data Admission Date: 03/04/2019 Admission Time: 11:23 Admit Source: Other Room #: D.2125 Procedure Procedure Types Cath Procedure Diagnostic Procedure LHC LHC w/Coronaries FFR/IVUS Intra-Coronary IVUS Initial PCI Procedure Coronary Stent Coronary Stent Initial Procedure Description Procedure Date Procedure Date: 03/05/2019 Procedure Start Time: 10:36 Procedure End Time: 10:50 Procedure Staff Name Function Tomer Mi MD Performing Physician Juan Fox RT Monitor Trung Rowe RT Scrub Kim Spaulding RN Nurse Procedure Data Cath Procedure Fluoroscopy Diagnostic fluoroscopy Total fluoroscopy Time: 3 time: 3 min min Diagnostic fluoroscopy Total fluoroscopy dose: 198 dose: 198 mGy mGy Contrast Material Contrast Material Type Amount (ml) Isovue 300 56 Entry Location Entry Primary Successful Side Size Upsize Upsize Entry Closure Odell ccessful Closure Location (Fr) 1 (Fr) 2 (Fr) Remarks Device Remarks Radial Right 6 Fr Mechanical artery Short Compression Estimated blood loss: 10 ml Diagnostic catheters Device Type Used For End Catheter Placement DIAGNOSTIC Boling 110cm 5 Procedure Fr catheter ([id number]) Procedure Complications No complications Procedure Medications Medication Administration Route Dosage Oxygen etCO2 Nasal cannula 2 l/min Lidocaine 2% added to field 20 Heparin Flush Bag added to field 2 bags (1000units/500ml NS) 0.9% NaCl I.V. 100 ml/hr Versed I.V. 1 mg Fentanyl I.V. 50 mcg Radial Cocktail I.A. 1 syringe (Verapomil 2mg/Nitro 400mcg/Heparin 1500units) Versed I.V. 1 mg Fentanyl I.V. 50 mcg Heparin Bolus I.V. 4000 units Hemodynamics Rest Heart Rate: 80 (bpm) Pressure Samples Time Site Value (mmHg) Purpose Heart Use Rate(bpm) 10:38 LV 106/76,63 Snapshot 100 10:39 AO 74/46(63) Pullback 85 10:39 AO 78/49(63) Snapshot 67 Gradients Valve Time Site Site 2 Mean SEP/DFP Peak To Heart Use 1 (mmHg) (sec/min) Peak Rate (mmHg) (bpm) Aortic 10:39 LV AO 76 39 85 74/46(63) Calculations Valve P-P Mean Valve Index Valve Source Name Gradient Area Flow (cm2) Aortic 76 76 Snapshots Pre Cath Intra NCS Post Cath Vital Signs Time Heart Resp SPO2 etCO2 NIBP (mmHg) Rhythm Pain Sedation Rate (ipm) (%) (mmHg) Status Level (bpm) 10:18:41 82 12 95 32.6 Measuring NSR 0 (11) 10(A) , No pain 10:24:34 56 13 98 38.6 137/64(119) NSR 0 (11) 10(A) , No pain 10:28:48 86 12 99 37.9 144/72(135) NSR 0 (11) 10(A) , No pain 10:34:07 58 14 100 1.4 136/63(112) NSR 0 (11) 10(A) , No pain 10:38:25 75 19 100 0 106/59(84) NSR 0 (11) 9(A) , No pain 10:42:33 63 15 95 8.1 90/55(74) NSR 0 (11) 9(A) , No pain 10:46:39 66 14 95 0 94/48(65) NSR 0 (11) 10(A) , No pain 10:50:36 70 11 95 32.7 84/55(68) NSR 0 (11) 10(A) , No pain Medications Time Medication Route Dose Verified Delivered Reason Not es Effectiveness by by 10:11:37 Oxygen etCO2 2 l/min Tomer Alvarez used for Nasal Hiwot Spaulding RN procedure cannula 10:11:44 Lidocaine 2% added 20ml Tomer Jeff for local to vial Hiwot Mi MD anesthetic field 10:11:50 Heparin Flush added 2 bags Tomer Jeff used for Bag to Hiwot Mi MD procedure (1000units/500ml field NS) 10:11:57 0.9% NaCl I.V. 100 Tomerlissett Alvarez Per physician ml/hr Hiwot Spaulding RN 10:35:50 Versed I.V. 1 mg Tomer Alvarez for sedation Hiwot Spaulding RN 10:35:51 Fentanyl I.V. 50 mcg Tomer Alvarez for sedation Hiwot Spaulding RN 10:38:22 Radial Cocktail I.A. 1 Tomer Jeff for (Verapomil syringe Hiwot Mi MD vasodilation 2mg/Nitro 400mcg/Heparin 1500units) 10:39:26 Versed I.V. 1 mg Tomer Alvarez for sedation Hiwot Spaulding RN 10:39:30 Fentanyl I.V. 50 mcg Tomer Alvarez for sedation Hiwot Spaulding RN 10:45:19 Heparin Bolus I.V. 4000 Tomer Youssefie for nimesh ified units Hiwot Spaulding RN anticoagulation with dr im Procedure Log Time Note 9:46:44 Informed consent obtained and on chart 9:46:47 Admit Source: Other 9:47:01 Diagnostic Cath status Elective 9:47:04 Time tracking: Call back (After hours or weekends) 9:47:08 Plan of Care:Hemodynamics will remain stable., Cardiac rhythm will remain stable., Comfort level will be maintained., Respiratory function will remain adequate., Patient/ family verbilizes understanding of procedure., Procedure tolerated without complication., Recovers from procedure without complications.. 9:50:40 Juan WINTERS(R) sent for patient. Start room use. 10:08:51 Patient received from Med II to CCL 1 Alert and oriented. Tansferred to table in Supine position. 10:08:53 Warm blankets applied, and lai hugger turned on for patient comfort. 10:08:54 Correct patient and procedure confirmed by team. 10:08:55 ECG and BP/O2 sat monitors applied to patient. 10:11:37 Oxygen 2 l/min etCO2 Nasal cannula was administered by Kim Spaulding RN; used for procedure; 10:11:44 Lidocaine 2% 20ml vial added to field was administered by Tomer Mi MD; for local anesthetic; 10:11:50 Heparin Flush Bag (1000units/500ml NS) 2 bags added to field was administered by Tomer Mi MD; used for procedure; 10:11:57 0.9% NaCl 100 ml/hr I.V. was administered by Kim Spaulding RN; Per physician; 10:16:53 Vital chart was started 10:16:54 Baseline sample Acquired. 10:17:01 Rhythm: sinus rhythm 10:17:03 Full Disclosure recording started 10:17:11 H&P Date Dictated: 03/05/2019 Within 30 days and on chart.. 10:17:12 Pre-procedure instructions explained to patient. 10:17:12 Pre-op teaching completed and patient verbalized understanding. 10:17:15 Family in patients room. 10:17:16 Patient NPO since Midnight. 10:17:17 Is the patient allergic to Iodine/contrast media? No. 10:20:55 Is patient on blood thinner?Yes 10:20:57 ACC The patient was administered the following blood thiners within the last 24 hours: ACCPlavix 10:20:59 Patient diabetic? No. 10:21:01 Previous problem with sedation/anesthesia? No ? 10:21:02 Snore? Yes 10:21:03 Sleep apnea? No 10:21:04 Deviated septum? No 10:21:05 Opens mouth fully? Yes 10:21:06 Sticks out tongue? Yes 10:21:10 Airway obstruction? No ? 10:21:14 Dentures? No ? 10:21:18 Pre procedure: right dorsailis pedis pulse 1+ Palpable, but thready & weak; easily obliterated 10:21:20 Modified Leroy's test Ulnar < 7 seconds 10:21:22 Patient pain scale 0/10 ?. 10:21:27 IV patent on arrival in left forearm with 0.9% NaCl at [facility]. 10:21:29 Lab results completed and on chart. 10:21:33 Right Radial & Right Groin area was prepped with chlora-prep and draped in sterile fashion 10:21:35 Alarms reviewed by R. N. 10:21:35 Sharps counted by scrub and verified by R.N. 10:21:43 Use device set Radial Dx or PCI 10:21:45 Tegaderm 4 x 4 (1626W) opened to sterile field. 10:21:46 ACIST Manifold (89880) opened to sterile field. 10:21:46 ACIST Hand Control (18530) opened to sterile field. 10:21:47 ACIST Syringe (30101) opened to sterile field. 10:21:48 Medline Cath Pack ([id number]) opened to sterile field. 10:21:48 Bag Decanter (2002S) opened to sterile field. 10:21:49 DIAGNOSTIC WIRE .035 260cm J wire (021761) opened to sterile field. 10:21:49 MBrace Wrist Support ([id number]) opened to sterile field. 10:21:50 SHEATH 6FR Slender (80-4770) opened to sterile field. 10:25:00 Physician paged 10:26:28 IV Extension Set opened to sterile field. 10:27:16 Use device set TAUTH PCI 10:27:24 CHOICE PT Extra Support 182cm wire ([id number]) opened to sterile field. 10:27:26 INFLATOR Merit BasixCompak (EY8593) opened to sterile field. 10:34:10 --------ALL STOP TIME OUT------ 10:34:11 Final Timeout: patient, procedure, and site verified with staff and physician. All members of the team are in agreement. 10:34:14 Right Radial & Right Groin site verified by team. 10:34:18 Maximum allowable Isovue 300 dose 300ml. Physician notified. (300ml for normal creatinines. For patients with creatinine of 1.7 or higher multiply weight(kg) x 5 divided by creatinine.) 10:34:21 Fire Safety Assessment: A--An alcohol-based skin anteseptic being used preoperatively., C--Open oxygen or nitrous oxide is being used., D--An ESU, laser, or fiber-optic light is being used. 10:34:24 Physical assessment completed. ASA score P 2 - A patient with mild systemic disease as per Tomer Mi MD. 10:34:26 Sedation plan: IV Moderate Sedation Medication:Versed, Fentanyl 10:35:50 Versed 1 mg I.V. was administered by Kim Spaulding RN; for sedation; 10:35:51 Fentanyl 50 mcg I.V. was administered by Kim Spaulding RN; for sedation; 10:36:13 [place] IVUS Catheter (82005E) opened to sterile field. 10:36:16 Procedure started. 10:36:21 Local anesthetic to right radial artery with Lidocaine 2% by Tomer Mi MD.INITIAL ACCESS ONLY 10:37:10 A 6 Fr Short sheath was inserted into the Right Radial artery 10:38:22 Radial Cocktail (Verapomil 2mg/Nitro 400mcg/Heparin 1500units) 1 syringe I.A. was administered by Tomer Mi MD; for vasodilation; 10:38:52 A DIAGNOSTIC Boling 110cm 5 Fr catheter (640738) was advanced over the wire and used for Procedure. 10:39:08 LV angiography performed. 10:39:09 LV gram done using DODD 10:39:14 EF : 60 % 10:39:26 Versed 1 mg I.V. was administered by Kim Spaulding RN; for sedation; 10:39:30 Fentanyl 50 mcg I.V. was administered by Kim Spaulding RN; for sedation; 10:39:30 LCA angiography performed. 10:39:44 Catheter exchanged over wire. 10:39:48 GUIDE 6FR AR 1.0 catheter ([id number]) opened to sterile field. 10:40:04 6 Fr AR 1 guide catheter was inserted over the wire 10:41:18 CPTXS wire advanced. 10:41:40 Wire advanced across lesion. 10:41:44 IVUS catheter advanced over wire. 10:42:11 IVUS pass to RCA lesion performed. 10:43:00 IVUS catheter removed over wire. 10:45:19 Heparin Bolus 4000 units I.V. was administered by Kim Spaulding RN; for anticoagulation; verified with dr mi 10:45:38 IVUS measured at 70% Mid RCA. 10:46:03 Inflate balloon Inflation number: 1 A INTEGRITY RX 3.5 x 15 stent ([id number]) was prepped and advanced across the Mid RCA, then inflated to 11 ROSA for 0:10 (min:sec). 10:46:43 TR BAND Standard (CPM50QIX) opened to sterile field. 10:46:52 Stent catheter was removed intact over wire. 10:46:53 Wire removed. 10:46:53 Guide catheter removed. 10:47:09 Sheath removed intact; hemostasis achieved with Mechanical Compression to the Right Radial artery. 10:48:41 Pt states took her Plavix that she brought from home earlier today. 10:48:57 Procedure ended.(Physican Out) 10:49:34 Fluoroscopy time 03.00 minutes. 10:49:38 Fluoroscopy dose: 198 mGy 10:49:38 Flurop Dose total: 198 10:49:42 Contrast amount:Isovue 300 56ml. 10:49:43 Sharps counted by scrub and verified by R.N. 10:49:46 TR band inflated with 10cc of air. 10:49:47 Insertion/operative site no bleeding no hematoma. 10:49:48 Post Procedure Pulses reassessed and unchanged 10:49:51 Post-procedure physical assessment completed. ASA score P 2 - A patient with mild systemic disease as per Tomer Mi MD. 10:49:53 Post procedure rhythm: unchanged. 10:49:55 Estimated blood loss: 10 ml 10:49:58 Post procedure instruction explained to patient.Patient verbalizes understanding. 10:49:58 Patient needs reinforcement of post procedure teaching. 10:50:08 Procedure type changed to Cath procedure, Diagnostic procedure, LHC, LHC w/Coronaries, FFR/IVUS, Intra-Coronary IVUS Initial, PCI procedure, Coronary Stent, Coronary Stent Initial 10:50:09 Procedure and supply charges have been captured, reviewed, submitted and are correct. 10:50:12 Procedure Complication : No complications 10:50:17 Vital chart was stopped 10:50:17 See physician's report for complete and final results. 10:50:42 Report given to PCU. 10:50:45 Patient transfered to PCU with Bed. 10:50:47 Procedure ended. 10:50:47 Full Disclosure recording stopped 10:51:45 End room use (Document Last) Intervention Summary Intervention Notes Time ActionType Lesion and Equipment Action# Pressure Duration Attributes Used 10:46:03 Inflate Mid RCA INTEGRITY RX 1 11 00:10 balloon 3.5 x 15 stent ([id number]) Device Usage Item Name Manufacture Quantity Catalog Number Hospital Part Current Mini mal Lot# / Charge Number Stock Stock Serial# Code Tegaderm 4 x 3M 1 1626W [id number] 038615 559305 5 4 (1626W) ACIST Acist 1 40105 083005 987621 745078 5 Manifold Medical (49371) Systems Inc ACIST Hand Acist 1 76992 993941 038532 806656 5 Control Medical (72410) Systems Inc ACIST Acist 1 80512 947970 013896 788141 20 Syringe Medical (37382) Systems Inc Medline Cath Medline 1 [id number] 830512 81335 862944 5 Pack ([id number]) Bag Decanter Microtek 1 2001S 938881 81427 051599 5 (2001S) Medical Inc. DIAGNOSTIC St Domo 1 562576 232614 660173 241044 30 WIRE .035 260cm J wire (777824) MBrace Wrist Advanced 1 140-0250-00 606454 02679 162910 5 Support Vascular (696769821) Dynamics SHEATH 6FR Terumo 1 [id number] 149003 868356 550037 5 Slender (80-1060) IV Extension Hospira 1 27826-38 075074 71015 457370 5 Set CHOICE PT [place] 1 [id number] 749221 805122 488662 5 Extra Scientific Support 182cm wire (7827061T3) INFLATOR Merit 1 FK3820 121438 820586 911928 15 [facility] Medical BasixCompak (WE1559) [place] 1 52738T 011345 332106 168363 8 [place] IVUS Catheter (71849D) DIAGNOSTIC Terumo 1 40-2292 691662 147660 377246 5 Boling 110cm 5 Fr catheter (488694) GUIDE 6FR AR Medtronic 1 [id number] 012458 67494 861554 1 1.0 catheter (VE9ZS17) INTEGRITY RX Medtronic 1 [id number] 396599 964642 073998 5 [id number] 3.5 x 15 stent ([id number]) TR BAND Terumo 1 [id number] 842443 757682 714964 40 Standard (PDG67DXY) Signature Audit [place] Stage Time Signature Unsigned Intra-Procedure 03/05/2019 Juan Fox 10:52:11 AM RT(R) Signatures Monitor : Juan Fox RT Signature : Date : Time : [address] [place] [address]
[~2019-03-04 10:05] MED LIST changes: +ASPIRIN81 MG PO; +OMEPRAZOLE20 M1 PO; +PLAVIX75 MG PO; +PRAVACHOL40 MG PO; +TOPROL XL25 MG PO
[2019-03-04 10:24] LABS: BASOPHILS 0.6 % (0-2); EOSINOPHILS 3.4 % (0-7); HEMATOCRIT 36.7 % (36.0-48.0); IMMATURE GRANULOCYTES 0.2 % (0-5); LYMPHOCYTES 40.1 % (15-50); MCH 27.5 pg (26.0-34.0); MCHC 32.7 g/dL (31.0-37.0); MCV 84.2 fL (80.0-100.0); MEAN PLATELET VOLUME 9.5 fL (7.4-10.4); MONOCYTES 11.8 % (2-11); NEUTROPHILS 43.9 % (40-80); RBC 4.36 10x6/uL (4.00-5.40); RDW 15.1 % (11.5-14.5)
[2019-03-04 10:25] LABS: PLATELET COUNT 244 10x3/uL (130-400)
[2019-03-04 10:33] LABS: APTT 24.4 SECONDS (22.8-39.4); INR 0.97 (0.85-1.17); PROTIME 12.4 SECONDS (11.6-15.0)
[2019-03-04 10:39] LABS: ALBUMIN 3.3 g/dL (3.4-5.0); ALKALINE PHOSPHATASE 56 U/L (46-116); ALT (SGPT) 20 U/L (10-68); BILIRUBIN - TOTAL 0.25 mg/dL (0.2-1.3); CALC OSMOLALITY 285 mosm/kg (275-300); CALCIUM 8.4 mg/dL (8.5-10.1); CARBON DIOXIDE 30.3 mmol/L (21.0-32.0); CHLORIDE - SERUM 104 mmol/L (98-107); CREATININE - SERUM 0.9 mg/dL (0.6-1.3); GLUCOSE 134 mg/dL (74-106); POTASSIUM - SERUM 3.5 mmol/L (3.5-5.1); PROTEIN - SERUM 7.3 g/dL (6.4-8.2); SODIUM 143 mmol/L (136-145); UREA NITROGEN 11 mg/dL (7-18); eGFR NON AFRICAN AMERICAN 65 mL/min (90-120)
[2019-03-04 10:50] LABS: CKMB 0.7 U/L (0.0-3.6); CREATINE KINASE 59 UL (21-215); MAGNESIUM - SERUM 1.9 mg/dL (1.8-2.4); TROPONIN-I < 0.017 ng/mL (0.000-0.060)
[2019-03-04 10:54] VITALS: BP 162/80
[2019-03-04 10:57] VITALS: BP 148/72
--- NOTE | 2019-03-04 11:00 | NUR ---
PT REPORTS MINIMAL RELIEF FROM NTG, PAIN 5/10.
--- NOTE | 2019-03-04 12:21 | NUR ---
TRANSFERED FROM ER BY W/Héctor MENENDEZ TO ROOM. CALL LIGHT IN REACH. WILL CONT. PLAN OF CARE.
--- NOTE | 2019-03-04 12:23 | NUR ---
PT ARRIVED. PLESANT, AT BEDSIDE. A/OX4.
[2019-03-04 13:09] VITALS: BP 148/72; Ht 157.5 cm; Wt 58.6 kg
[2019-03-04 15:56] VITALS: BP 129/86
--- NOTE | 2019-03-04 18:25 | NUR ---
PT TOOK HOME POTASSIUM AND HOME PRAVISTATIN. DR HAD NOT RECCONSILED MED YET
--- NOTE | 2019-03-04 18:33 | NUR ---
PT LYING IN BED WITH FAMILY AT BEDSIDE. REQUESTS TO TAKE HOME MEDICATIONS AT NIGHT, INFORMED THAT THE NIGHT NURSE MUST BE MADE AWARE PRIOR TO HER TAKING ANYTHING. SHE UNDERSTANDS. CL IN REACH. SRX2
--- NOTE | 2019-03-04 20:00 | NUR ---
INITIAL ROUNDS AND ASSESSMENT COMPLETED. PT UP AND ABOUT IN ROOM WITH DAUGHTER PRESENT. PLACED O2 @ 2L/C IN ROOM AND ENCOURAGED PT TO USE WHEN SHE FEELS PRESSURE IN HER CHEST. INSTRUCTED ON NPO AFTER MIDNIGHT FOR PLANNED AM HEART CATH.
[2019-03-04 20:28] VITALS: BP 127/99
--- NOTE | 2019-03-04 22:57 | NUR ---
PT TOOK HER OWN ELAVIL AT BEDTIME. DAUGHTER STAYING AT BEDSIDE TONIGHT.
[2019-03-05 00:27] VITALS: BP 135/68
--- NOTE | 2019-03-05 02:11 | NUR ---
PT RESTING IN BED WITH NO DISTRESS. MONITOR AND CPOC.
[2019-03-05 03:53] VITALS: BP 136/50
--- NOTE | 2019-03-05 07:03 | NUR ---
PT AWAKE AND ORIENTED ON THE PHONE, FAMILY AT BEDSIDE. ASKED WHAT TIME THEY'LL GO TO DESIGN COORDINATOR, TOLD THEM THAT WE HAVE TO WAIT FOR DR MIGUEL
[2019-03-05 07:41] VITALS: BP 132/80
--- NOTE | 2019-03-05 10:49 | HP ---
PATIENT: SUNI SHAIKH MEDICAL RECORD: [id number] ACCOUNT: [id number] LOCATION:D. D.2125 : 41 ADMISSION DATE: 03/04/19 PCP: PINO TURNER DO HISTORY AND PHYSICAL EXAMINATION ADMITTING DIAGNOSES: 1. Angina. 2. Coronary artery disease. 3. Previous percutaneous transluminal coronary angioplasty stent. 4. Hypertension. 5. Dysrhythmia - premature ventricular contractions. 6. Gastroesophageal reflux disease. HISTORY OF PRESENT ILLNESS: Mrs. Shaikh presents with chest discomfort and palpitation. She is found to be in bigeminy. The PVCs are not new. She is on Toprol 25 mg XL for the PVCs and for blood pressure. Her systolic blood pressure has been running in the 160-180 range as well. With nitro, her chest pain was relieved status post PTCA stent of the LAD recently reviewed. The cath film reveals that there is disease of the right coronary artery as well. PHYSICAL EXAMINATION: GENERAL APPEARANCE: Well-nourished, well-developed, appears stated age. Level of distress, comfortable. PSYCHIATRIC: Mental status, alert, normal affect. Orientation, oriented to time, place and person. EYES: Lids and conjunctiva, noninjected. No discharge, no pallor. ENT: Lips, teeth, gums, normal dentition. Oropharynx, no cyanosis, no pallor. NECK: Carotid arteries, bilateral normal upstroke, no bruits, no thrills. JUGULAR VEINS: No jugular venous pressure or distention. CERVICAL LYMPH NODES: Nontender, nonenlarged. THYROID: Not enlarged. Nontender. No nodules. LUNGS: Respiratory effort, unlabored. CHEST: Normal curvature. No thoracic deformity. No chest wall tenderness. Percussion, resonant. Auscultation, clear. No wheezes, no rales, no rhonchi. CARDIOVASCULAR: Precordial exam, nondisplaced. No heaves or pericardial thrills. Rate and rhythm, regular. Heart sounds, normal S1, normal S2. No S3, no gallop, no rub. Systolic murmur, not heard. Diastolic murmur, not heard. EXTREMITIES: No cyanosis, no edema. Peripheral pulses, full and equal in all extremities, except as noted. No bruits appreciated. ABDOMEN: Soft, nondistended. Normal aorta. No bruit. Nontender. No masses. Liver, nontender, no hepatomegaly. Spleen, nontender, no splenomegaly. MUSCULOSKELETAL: No joint tenderness. No joint swelling. No erythema. NEUROLOGICAL: Normal gait, normal strength, normal tone. SKIN: Warm and dry. OVERALL IMPRESSION: Continued chest pain. We will admit her. We will change the metoprolol to metoprolol tartrate b.i.d. and add Cardura b.i.d. to her medical regimen to control her blood pressure as she has not tolerated IMELDA inhibitors in the past. We will plan for repeat cardiac catheterization and transcatheter revascularization of the right coronary artery as well. TRANSINT:[id number] Voice Confirmation ID: [id number] DOCUMENT ID: [id number] HISTORY AND PHYSICAL [id number] SUNI SHAIKH JEFFREY MD at 1049 CC: [id number] DICTATION DATE: 03/04/19 1120 GLOBAL POSITION SYSTEM TECHNICIAN: 03/04/19 1216 ADM IN [place] [id number] [place] [address]
--- NOTE | 2019-03-05 11:00 | NUR ---
PT ABCK FROM SUSTAINABILITY COACH. RIGHT RADIAL PULSE PRESENT. SITE C/D/I. FAMILY AT BEDSIDE. CL IN REACH. SRX2. NO COMPLAINTS/CONCERNS.
[2019-03-05] MEDS ORDERED: CARDURA1 MG PO (11:21)
[2019-03-05] MEDS ORDERED: LOPRESSOR25 MG PO (11:22)
--- NOTE | 2019-03-05 13:22 | NUR ---
PT AWAKE AND ORIENTED, FAMILY AT BEDSIDE. D/C DONE, WAITING FOR THE 4 HOUR WINDOW TO BE UP, PT WILL LEAVE 1500. NO COMPLAINTS/CONCERNS VOICED AT THIS TIME. CL IN REACH. SRX2. PROVIDED LUNCH
--- NOTE | 2019-03-05 13:59 | NUR ---
RN NOTE: SITTING AT 30 DEGREES WITH GLASSES ON. 3 CC OF AIR REMOVED FROM RIGHT TR BAND. FEMALE MEMBER PRESENT. DENIES ANY CHEST PAIN OR DISCOMFORT.
--- NOTE | 2019-03-05 14:47 | NUR ---
PT BLEEDING FROM SITE, REINSTERED 2.5ML AIR. WILL TRY AGAIN SHORTLY.
--- NOTE | 2019-03-05 15:40 | NUR ---
ATTEMPTED TO REMOVE AIR, PT CONTINUED TO BLEED. RE-INSERTED AIR, WILL ATTEMPT AGAIN IN AN HOUR.
--- NOTE | 2019-03-05 17:46 | NUR ---
PT HAS FINALLY STOPPED BLEEDING. WILL WRAP IN [place] JUST INCASE AND SEND HOME.
--- NOTE | 2019-03-05 18:12 | NUR ---
ESCORTED OUT VIA WHEEL CHAIR WITH TECH. NO COMPLAINTS OR CONCERNS, NO BLEEDING AT SITE.
--- NOTE | 2019-03-06 08:24 | MORECARE ---
CASE MANAGEMENT DISCHARGE SUMMARY PATIENT: SUNI SHAIKH ANN UNIT: [id number] ADM DATE: 03/04/19 AGE: 73 : 43 SEX: F ROOM/BED: D.3571 AUTHOR: JENS MONAE PHYSICIAN: REFERRING PHYSICIAN: KAREN MIGUEL MD DATE OF SERVICE: 03/06/19 Discharge Plan Patient Name: SUN[facility]AIKH [facility] [facility] 1945 Planned Disposition: Home Anticipated Discharge Date: 03/05/19 Discharge Date: 03/05/2019 Expected LOS: 1 Initial Reviewer: [email or web address] Initial Review Date: 03/06/2019 Generated: 03/06/19 9:23 am Patient Name: SUNI SHAIKH Page [id number] at 0824 All edits/amendments must be made on the electronic document DICTATION DATE: 03/06/19822 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
--- NOTE | 2019-03-06 09:55 | OP ---
PATIENT NAME: SUNI SHAIKH MEDICAL RECORD: [id number] :41 LOCATION:D.M2 D.2125 ADMISSION DATE:03/04/19 SURGEON: KAREN MIGUEL MD DATE OF OPERATION: 03/05/2019 PROCEDURES: 1. PTCA and stent, RCA. 2. Intravascular ultrasound. 3. Left heart catheterization. 4. Selective coronary angiography. 5. Left ventriculogram. INDICATION: Angina and coronary artery disease. PROCEDURE IN DETAIL: After informed consent was obtained with detailed description of risks and benefits as well as alternative therapies, the patient elected to proceed with angiogram and angioplasty. The right radial area was prepped and draped in normal sterile fashion. The right radial artery was cannulated via modified Seldinger technique with placement of 6-Greenlandic sheath. All catheters were exchanged through this sheath. FINDINGS: Left ventriculogram performed in standard 30-degree DODD view reveals good cardiac wall motion throughout all segments. Overall ejection fraction is estimated at 55% to 60%. SELECTIVE CORONARY ANGIOGRAPHY: 1. Left main is with no significant angiographic disease. 2. Left anterior descending has previously placed stent. This is widely patent. No disease elsewise at the LAD or its branches. 3. Left circumflex has moderate irregularities, but no flow-limiting stenosis. 4. Right coronary has 70% stenosis in the mid vessel, confirmed by intravascular ultrasound. PTCA AND STENT OF THE RCA: Stent used was 3.5 x 15 mm Integrity. Result was 0% residual stenosis. OVERALL IMPRESSION: Successful PTCA and stent of the RCA, going from 70% initial stenosis to 0% residual. TRANSINT:[id number] Voice Confirmation ID: [id number] DOCUMENT ID: [id number] KAREN MIGUEL MD at 0955 CC: [id number] DICTATION DATE: 03/05/19 1050 SUBSTANCE ABUSE SPECIALIST: 03/05/19 1221 DIS IN 03/05/19 [place] [address]
== END 2019-03-05 18:15 | disposition home or self-care (01) ==
LOC: D.ER 10:05 → D.EDHOLD 11:23 → OBSVTIME 11:25 → D.M2 11:45
PROVIDERS: Emergency Medicine; ADMIT Internal Medicine Interventional Cardiology; ATTEND Internal Medicine Interventional Cardiology
DX: I25.119 Atherosclerotic heart disease of native coronary artery with unspecified angina pectoris (principal); I10 Essential (primary) hypertension; I49.3 Ventricular premature depolarization; K21.9 Gastro-esophageal reflux disease without esophagitis

== ENCOUNTER 2019-11-07 06:49 | Day surgery (SDC) | payer MEDICARE, OTHER ==
[~2019-11-07] VITALS: Ht 157.5 cm; Wt 60.5 kg
[~2019-11-07 06:49] MED LIST changes: +CARDURA1 MG PO; +LOPRESSOR25 MG PO
[2019-11-07 07:49] LABS: BASOPHILS 0.9 % (0-2); EOSINOPHILS 3.9 % (0-7); HEMATOCRIT 37.8 % (36.0-48.0); HEMOGLOBIN 12.4 g/dL (12-16); LYMPHOCYTES 39.5 % (15-50); MCH 27.9 pg (26.0-34.0); MCHC 32.8 g/dL (31.0-37.0); MCV 85.1 fL (80.0-100.0); MEAN PLATELET VOLUME 9.3 fL (7.4-10.4); MONOCYTES 10.5 % (2-11); NEUTROPHILS 45.2 % (40-80); PLATELET COUNT 205 10x3/uL (130-400); RBC 4.44 10x6/uL (4.00-5.40); RDW 14.7 % (11.5-14.5); WBC 3.3 10x3/uL (4.8-10.8)
[2019-11-07] MEDS ORDERED: NORVASC5 MG PO (07:57)
[2019-11-07] MEDS ORDERED: HYZAAR 50-12.51 TAB PO (07:59)
[2019-11-07 08:00] LABS: ANION GAP 10.2 mmol/L (8-16); CARBON DIOXIDE 29.3 mmol/L (21.0-32.0); CREATININE - SERUM 0.8 mg/dL (0.6-1.3); POTASSIUM - SERUM 3.5 mmol/L (3.5-5.1)
[2019-11-07 08:05] VITALS: BP 155/81; Ht 157.5 cm; Wt 60.5 kg
[2019-11-07 08:09] LABS: APTT 27.3 SECONDS (22.8-39.4); INR 1.05 (0.85-1.17); PROTIME 13.2 SECONDS (11.6-15.0)
--- NOTE | 2019-11-07 11:46 | NUR ---
DC INSTRUCTIONS GIVEN TO PT/SPOUSE. STATE UNDERSTANDING DC'D IV CATH FULLY INTACT.
--- NOTE | 2019-11-07 11:57 | NUR ---
PT LEFT UNIT VIA WC AT 1157
--- NOTE | 2019-11-10 16:51 | HP ---
PATIENT: SUNI SHAIKH MEDICAL RECORD: [id number] ACCOUNT: [id number] LOCATION:ANAND : 41 ADMISSION DATE: 11/07/19 PCP: PINO TURNER DO HISTORY AND PHYSICAL EXAMINATION CHIEF COMPLAINT: Duodenal polyp. The patient is going to undergo surveillance upper endoscopy to see if there has been any regrowth of a duodenal polyp. The patient does have some reflux. No significant dysphagia; however. The risks, possible complications, and alternatives to the procedure were explained to the patient. She elects to proceed. HOME MEDICATIONS: Please see the nursing list. I note no blood thinners. ALLERGIES: Please see the nursing list. SOCIAL HISTORY: Nonsmoker. PAST MEDICAL AND SURGICAL HISTORY: Coronary artery disease, hypertension, coronary stents times 2, also arthritis, and also duodenal polyp. REVIEW OF SYSTEMS: Negative for CVA or seizures. Negative for diabetes or thyroid problems. PHYSICAL EXAMINATION: GENERAL: The patient does not appear acutely ill. She does not appear chronically ill. EARS: External ears appear normal. EYES: Extraocular movements are intact. NECK: Trachea is midline. CHEST: No intercostal retractions. PULMONARY: Nonlabored, no stridor. IMPRESSION: Duodenal polyp and gastroesophageal reflux disease. PLAN: EGD with removal of any recurrent duodenal polyp. TRANSINT:[id number] Voice Confirmation ID: [id number] DOCUMENT ID: [id number] SEAMUS RECIO MD at 1651 CC: CIPRIANO SILVA MD, PINO TURNER and KAREN MIGUEL [id number] DICTATION DATE: 11/07/19 1044 OPERATING ROOM MANAGER: 11/07/19 1104 [facility] 11/07/19 [id number] [place] [address]
--- NOTE | 2019-11-10 16:51 | OP ---
PATIENT NAME: SUNI SHAIKH MEDICAL RECORD: [id number] :41 LOCATION:D.OPS ADMISSION DATE: SURGEON: SEAMUS RECIO MD DATE OF OPERATION: 11/07/2019 PRINCIPAL DIAGNOSIS: History of a duodenal polyp. POSTOPERATIVE DIAGNOSIS: History of a duodenal polyp with no evidence of a persistent or recurrent polyp within the duodenum. PROCEDURE: Esophagogastroduodenoscopy with antral and distal esophageal biopsies to rule out Izquierdo's esophagus. SURGEON: Seamus Recio MD WRITING TUTOR: None. BLOOD LOSS: Minimal. ANESTHESIA: IV sedation. ENDOSCOPIC COURSE: The patient was conveyed to endoscopy suite electively on 11/07/2019. IV sedation was induced by the anesthesia staff. A bite block was inserted. A gastroscope was inserted into the mouth. It was advanced easily into the hypopharynx. The esophagus was easily intubated as were the stomach and duodenum. I advanced all the way to the jejunum. I then withdrew and utilized two different imaging modalities within the duodenum. One was normal imaging. The other one was narrow band imaging. I noted the previous polypectomy site. There was no recurrent or persistent polyp. I withdrew into the antrum. Cold biopsies were obtained in the antrum to rule out H. pylori. Retroflexion angulus views were obtained. I then withdrew into the distal esophagus and it appeared there may be some Izquierdo's present and for this reason random biopsies were obtained at the EG junction. The endoscope was then withdrawn under direct vision. I will see the patient in my office in 2-3 weeks. I do not believe that surveillance upper endoscopies are going to be necessary as there was no regrowth or persistence of the duodenal polyp. However, if the patient does have Izquierdo's, then she will require surveillance upper endoscopy with biopsy. TRANSINT:[id number] Voice Confirmation ID: [id number] DOCUMENT ID: [id number] SEAMUS RECIO MD at 165 CC: CIPRIANO SILVA MD, PINO TURNER and KAREN MIGUEL [id number] DICTATION DATE: 11/07/19 1112 NUCLEAR INSTRUCTOR: 11/07/19 1244 [facility] 11/07/19 [place] [address]
== END 2019-11-07 11:57 | disposition home or self-care (01) ==
LOC: D.OPS 06:49
PROVIDERS: Anesthesiology; ATTEND Surgery
DX: Z86.010 Personal history of colon polyps (principal); R13.10 Dysphagia, unspecified; I10 Essential (primary) hypertension

== ENCOUNTER → 2021-02-19 08:25 | Outpatient (CLI) | payer MEDICARE ==
[2019-11-07 08:05] VITALS: BMI 24.4
[~2021-02-19 08:25] MED LIST changes: +HYZAAR 50-12.51 TAB PO; +NORVASC5 MG PO
== END | disposition home or self-care (01) ==
LOC: D.MRI 08:25
PROVIDERS: ATTEND Clinical Nurse Specialist Adult Health
DX: E27.8 Other specified disorders of adrenal gland (principal)